=== PATIENT | male | born 2000 | race Hispanic/Latino ===

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

== ENCOUNTER 2022-11-10 02:43 | Emergency (ER) | payer OTHER ==
[~2022-11-10] VITALS: Ht 162.6 cm; Wt 137.9 kg
[2022-11-10] MEDS ORDERED: LACTATED RINGERS 1000ML IV ONE (04:00)
[2022-11-10] MEDS ORDERED: DiphenhydrAMINE HCL 50 MG/ML VIAL IV ONE (04:00)
[2022-11-10] MEDS ORDERED: KETOROLAC 15MG/ML VIAL (15MG/ML) IV ONE (04:00)
[2022-11-10] MEDS ORDERED: FAMOTIDINE 20MG VIAL IV ONE (04:00)
[2022-11-10] MEDS ORDERED: PROCHLORPERAZINE 10MG/2ML INJ IV ONE (04:00)
[2022-11-10 05:42] VITALS: BP 131/60
== END 2022-11-10 06:25 | disposition home or self-care (01) ==
LOC: EDH 02:43
DX: G44.89 Other headache syndrome (principal); Z90.49 Acquired absence of other specified parts of digestive tract; Z88.0 Allergy status to penicillin
CPT/HCPCS: 99284; 96374; 96375; 96361; J7120; J1200; J3490; J0780; J1885

== ENCOUNTER 2024-08-01 13:27 | Emergency (ER) | payer BC ==
[~2024-08-01] VITALS: Ht 162.6 cm; Wt 127.0 kg
[2024-08-01 14:09] LABS: RAPID GROUP A STREP negative (NEGATIVE)
[2024-08-01 14:13] LABS: SARS-CoV-2, RNA, NAAT NEGATIVE SARS CoV-2 (NEGATIVE)
[2024-08-01 14:13] LABS: BASOPHILS # (AUTO) 0.01 K/uL (0.00-0.20); BASOPHILS % (AUTO) 0.1 % (0.0-5.0); IMMATURE GRANULOCYTE ABSOLUTE 0.03 K/uL (0-1); MEAN CORPUSCULAR HEMOGLOBIN 31.7 pg (27.0-33.0); MEAN CORPUSCULAR HGB CONC 34.5 g/dL (32.0-36.0); MEAN CORPUSCULAR VOLUME 91.9 fL (79-99); MONOCYTES # (AUTO) 0.6 K/uL (0.1-1.0); MONOCYTES % (AUTO) 7.5 % (3.0-13.0); NEUTROPHILS # (AUTO) 6.8 K/uL (1.8-7.7); PLATELET COUNT (AUTO) 267 K/uL (130-400); RED BLOOD CELL COUNT(AUTO) 4.57 MIL/uL (4.50-6.20); WHITE BLOOD COUNT (AUTO) 8.5 K/uL (4.8-10.8)
[2024-08-01 14:19] LABS: INFLUENZA TYPE A Negative For Type A (NEGATIVE)
[2024-08-01 14:29] LABS: INFLUENZA TYPE B Positive For Type B (NEGATIVE)
--- NOTE | 2024-08-01 14:45 | ERN ---
General Chief Complaint: Fever Stated Complaint: FLU LIKE SYMPTOMS, SOB Time Seen by MD: 13:27 Source: patient History of Present Illness Initial Comments Patient is a 23-year-old male coming in to be evaluated for fever body aches and URI symptoms. Patient states the symptoms began yesterday. Some of the other URI symptoms include cough congestion and runny nose. Allergies: Coded Allergies: Penicillins (Unverified Allergy, Unknown, 08/09/19) Past Medical History Past Medical History: No Pertinent History Past Surgical History: Cholecystectomy ROS Dictation CONSTITUTIONAL: No chills, fever, no weakness, no diaphoresis, malaise. HEAD/FACE: No signs of trauma. EENT: No eye pain, no blurred vision, no tearing, no double vision, no ear pain, no ear discharge, no nose pain, no nasal congestion, no throat pain, no throat swelling, no mouth pain. RESPIRATORY: No cough, no orthopnea, no SOB, no stridor, no wheezing. CARDIOVASCULAR: No chest pain, no edema, no palpitations, no syncope. GASTROINTESTINAL/ABDOMINAL: No abdominal pain, no constipation, no diarrhea, no nausea, no vomiting. GENITOURINARY: No abnormal discharge, no dysuria, no frequent urination, no hematuria. No complaints of pain in the genitals. MUSCULOSKELETAL: No back pain, no gout, no joint pain, no joint swelling, no muscle pain, no muscle stiffness, no neck pain. INTEGUMENTARY: No change in color, no change in hair/nails, no dryness, no lesion, no lumps, no rash. NEUROLOGICAL/PSYCH: No anxiety, not depressed, no emotional problem, no headache, no numbness, no pre-existing deficit, no history of seizures, no tremors, no weakness. HEMATOLOGIC/LYMPHATIC: Not anemic, no history of blood clots, no apparent bleeding, no bruising, glands not swollen. All Systems Negative, Except as Noted. Physical Exam Physical Exam Dictation VITAL SIGNS: Reviewed. GENERAL APPEARANCE: Alert, oriented x3, no acute distress, obese. HEAD AND FACE: Non-traumatic. EYES: PERRL, pink conjunctivas, eyelid no trauma, anterior chamber clear. EARS: Pinnas intact and no signs of trauma or erythema. Ear canals clear and no discharge. TMs no erythema. NOSE: No discharge, no bleeding. OROPHARYNX: Mouth normal, teeth no caries, tongue pink. Pharynx clear, no erythema. Tonsils no exudates, no abscesses noted. Mucous membrane moist. NECK: Supple, non-tender, no thyromegaly, no masses, no JVD, no bruits. BREAST: Deferred. CHEST: No tenderness, no crepitus, no paradoxical movement, no retractions. LUNGS: Clear, well-ventilated, symmetric, no rales, no wheezing, no rhonchi, no stridor, good breath sounds bilaterally. HEART: Regular rate, regular rhythm, no murmur, no gallops. VASCULAR: No peripheral edema. ABDOMEN: Soft, positive bowel sounds, nondistended, no guarding, nontender, no rebound, no masses no hepatomegaly, no splenomegaly, no Watt's sign, no hernias. RECTAL: Deferred. GENITAL: Deferred. NEUROLOGICAL: Normal speech, gross motor function intact, gross sensory function intact. MUSCULOSKELETAL: Neck nontender, full range of motion, back nontender, full range of motion. EXTREMITIES: Nontender, full range of motion. SKIN: Color pink, dry, no turgor, no rash, no lacerations, no abrasions, no contusions. LYMPHATICS: Deferred. Results Laboratory and Microbiology Lab and Micro Result Laboratory Tests Test 08/01/24 13:40 08/01/24 13:57 Influenza Type A Antigen Negative For Type A Influenza Type B Antigen Positive For Type B SARS-CoV-2, RNA, NAAT NEGATIVE SARS CoV-2 Group A Streptococcus Rapid negative (NEGATIVE) White Blood Count 8.5 K/uL (4.8-10.8) Red Blood Count 4.57 MIL/uL (4.50-6.20) Hemoglobin 14.5 g/dL (14.0-18.0) Hematocrit 42.0 % (42-54) Mean Corpuscular Volume 91.9 fL (79-99) Mean Corpuscular Hemoglobin 31.7 pg (27.0-33.0) Mean Corpuscular Hemoglobin Concent 34.5 g/dL (32.0-36.0) Red Cell Distribution Width 13.0 % (11.0-15.5) Platelet Count 267 K/uL (130-400) Mean Platelet Volume 10.7 fL (7.5-10.5) H Immature Granulocyte % (Auto) 0.4 % (0-1) Neutrophils (%) (Auto) 80.0 % (40.0-77.0) H Lymphocytes (%) (Auto) 12.0 % (21.0-51.0) L Monocytes (%) (Auto) 7.5 % (3.0-13.0) Eosinophils (%) (Auto) 0.0 % (0.0-8.0) Basophils (%) (Auto) 0.1 % (0.0-5.0) Neutrophils # (Auto) 6.8 K/uL (1.8-7.7) Lymphocytes # (Auto) 1.0 K/uL (1.0-4.8) Monocytes # (Auto) 0.6 K/uL (0.1-1.0) Eosinophils # (Auto) 0.00 K/uL (0.00-0.70) Basophils # (Auto) 0.01 K/uL (0.00-0.20) Absolute Immature Granulocyte (auto 0.03 K/uL (0-1) Nucleated Red Blood Cells 0.0 % (0.0-0.19) Sodium Level 135 mmol/L (136-145) L Potassium Level 3.5 mmol/L (3.5-5.1) Chloride Level 100 mmol/L (101-111) L Carbon Dioxide Level 26 mmol/L (21-32) Blood Urea Nitrogen 9 mg/dL (7-18) Creatinine 1.1 mg/dL (0.5-1.3) Glomerular Filtration Rate Calc 97 mL/min (>90) Random Glucose 112 mg/dL (70-105) H Lactic Acid Level 1.8 mmol/L (0.8-2.5) Total Calcium 8.4 mg/dL (8.5-10.1) L Total Creatine Kinase 79 U/L (21-232) Troponin I High Sensitivity 9 ng/L (4-75) Labs Reviewed?: Yes MDM MDM: Differential diagnosis: Influenza B, dehydration, URI Patient is a 23-year-old male coming in to be evaluated for URI symptoms. Long with the URI symptoms patient has been having body aches. Laboratory workup positive for influenza B. Patient will be discharged in stable condition. Tamiflu will be provided. ED Course Orders Procedure Category Date Status Time Cbc With Differential LAB 08/01/24 Complete 13:40 Blood Cult PABLO 08/01/24 Logged 13:40 Urinalysis Profile LAB 08/01/24 Logged 13:40 Culture Urine PABLO 08/01/24 Logged 13:40 Creatine Kinase, Total LAB 08/01/24 Complete 13:40 Troponin I High LAB 08/01/24 Complete Sensitivity 13:40 Lactic Acid LAB 08/01/24 Complete 13:40 Basic Metabolic Panel LAB 08/01/24 Complete 13:40 Covid Rna Naat LAB 08/01/24 Complete 13:40 Influenza Type A & B, LAB 08/01/24 Complete Rapid 13:40 Rapid (Group A Strep) LAB 08/01/24 Complete 13:40 Acetaminophen 500mg PHA 08/01/24 Complete Tab (Tylenol 500mg T 14:00 Ibuprofen 600 Mg PHA 08/01/24 Complete Tablet (Motrin) 14:00 Current Medications Medications (Trade) Dose Ordered Sig/[place] PRN Reason Start Time Stop Time Status Last Admin Dose Admin Acetaminophen (TYLenol 500MG TAB) 1,000 mg ONCE ONCE PO 08/01/24 14:00 08/01/24 14:01 DC 08/01/24 15:15 Ibuprofen (moTRIN) 600 mg ONCE ONCE PO 08/01/24 14:00 08/01/24 14:01 DC 08/01/24 15:15 Vital Signs Date Time Temp Pulse Resp B/P (MAP) Pulse Ox O2 Delivery O2 Flow Rate FiO2 08/01/24 15:15 102.9 08/01/24 15:15 102.9 08/01/24 15:10 102.9 114 28 163/90 96 Room Air* 0 21 08/01/24 13:40 103.3 125 16 176/90 98 Room Air* 0 21 08/01/24 13:40 103.3 125 16 176/90 95 Room Air 0 DX & DISP Disposition: Discharge Departure Impression: Primary Impression: Influenza B Condition: Stable Scripts Acetaminophen (Tylenol) 500 Mg Tab 1 TAB PO Q6HPRN PRN for pain or fever for 5 Days, #30 TAB 0 Refills Prov: AJIT TIWARI MD 08/01/24 Oseltamivir Phosphate (Tamiflu) 75 Mg Cap 1 CAP PO BID for 5 Days, #10 CAP 0 Refills Prov: AJIT TIWARI MD 08/01/24 Additional Instructions: FOLLOW-UP WITH PRIMARY CARE PROVIDER IN 1 TO 2 DAYS. TAKE MEDICATIONS DIRECTED HERE IN THE EMERGENCY ROOM. OKAY TO CONTINUE HOME MEDICATIONS UNLESS OTHERWISE DISCUSSED DURING YOUR VISIT IN THE EMERGENCY ROOM TODAY. RETURN TO YOUR NEAREST EMERGENCY ROOM IF SYMPTOMS WORSEN OR IF THERE IS NO IMPROVEMENT. CALL 911 IF YOU NEED IMMEDIATE ASSISTANCE. TAKE TYLENOL [id number] NEEDED AND IF NO CONTRAINDICATIONS ARE PRESENT. INCREASE ORAL HYDRATION. A WOUND CULTURE OR URINE CULTURE WAS ORDERED HERE IN THE EMERGENCY ROOM DEPARTMENT PLEASE FOLLOW-UP WITH PRIMARY CARE PROVIDER AND ADVISE THEM TO GET REPEAT PORTS FROM OUR FACILITY. IF YOU HAD ANY JOANNA WRAP/SPLINTS THAT WERE APPLIED HERE, PLEASE DO NOT REMOVE THEM UNTIL YOU SEE YOUR PRIMARY CARE OR SPECIALTY. Referrals: Referrals: RENATO GRAYSON MD (PCP) Time of Disposition: 15:56 AJIT TIWARI MD Aug 01, 2024 14:45
[2024-08-01 14:49] LABS: CREATININE 1.1 mg/dL (0.5-1.3); POTASSIUM 3.5 mmol/L (3.5-5.1)
[2024-08-01] MEDS: acetaMINOPHEN 500 MG TABLET PO ONE (15:15)
[2024-08-01] MEDS: ibuPROFEN 600 MG TABLET PO ONE (15:15)
[2024-08-01] MEDS ORDERED: OSEL75 PO (15:56)
[2024-08-01] MEDS ORDERED: ACET-66 PO (15:56)
[2024-08-01 16:00] VITALS: BP 142/90; PULSE 104; RESP 20; TEMP 100; O2SAT 96
[2024-08-01 16:03] VITALS: TEMP 100
== END 2024-08-01 16:09 | disposition home or self-care (01) ==
LOC: EDH 13:27
DX: J10.1 Influenza due to other identified influenza virus with other respiratory manifestations (principal); Z88.0 Allergy status to penicillin; Z90.49 Acquired absence of other specified parts of digestive tract; Z20.822 Contact with and (suspected) exposure to COVID-19
CPT/HCPCS: 36415; 80048; 82550; 83605; 84484; 85025; 87040; 87635; 87804; 87880; 99283